=== PATIENT | male | born 1990 ===

== ENCOUNTER 2017-12-27 05:17 | Inpatient (IN) | payer OTHER ==
[~2017-12-27] VITALS: Ht 172.7 cm; Wt 87.5 kg
[2017-12-27] VITALS (12 sets, daily range): BP systolic 104–133; BP diastolic 55–90
[~2017-12-27 05:17] MED LIST: NORCO 10-325 T1 EACH ORAL
[2017-12-27] MEDS ORDERED: LR 1000ml 1,000 ML IVLG SCH (06:16)
--- NOTE | 2017-12-27 06:21 | Anethesia Preoperative Eval ---
Anesthesia Pre-op PMH/ROS General Date of Evaluation: Dec 27, 2017 Time of Evaluation: 07:01 Anesthesiologist: Leo ASA Score: ASA 2 Mallampati Score Class I : Soft palate, uvula, fauces, pillars visible Class II: Soft palate, uvula, fauces visible Class III: Soft palate, base of uvula visible Class IV: Only hard plate visible Mallampati Classification: Class I Surgeon: Deb Diagnosis: Back Pain Surgical Procedure: L4-5,L5-S1 Microdiscectomy and Decompression Anesthesia History: none Family History: no anesthesia problems Allergies: Coded Allergies: No Known Allergies (Unverified , 12/26/17) Medications: see eMAR Past Medical History Pulmonary: Reports: other - Bronchitis Neurologic/Psychiatric: Reports: depression/anxiety Other: obesity - BMI 31 Anesthesia Pre-op Phys. Exam Physician Exam Last Vital Signs Date Time Temp Pulse Resp B/P (MAP) Pulse Ox O2 Delivery O2 Flow Rate FiO2 12/27/17 06:02 Room Air Constitutional: NAD Neurologic: CN 2-12 intact Cardiovascular: RRR Respiratory: CTA Gastrointestinal: S/NT/ND Airway Exam Mallampati Score: Class I MO: full ROM: full Teeth: intact Anesthesia Pre-op A/P Risk Assessment & Plan Assessment: ASA 2 Plan: GA, SED, GlideScope Status Change Before Surgery: No Pre-Antibiotics Dru Grams Ancef IV Given Within 1 Hr of Incision: Yes Time Given: 07:21 Luis F Bailey MD Dec 27, 2017 06:21
[2017-12-27] MEDS ORDERED: fentaNYL 100 mcg/2 mL IV PRN (06:30)
[2017-12-27] MEDS ORDERED: Acetaminophen (Non formulary) 100 ML IV ONE (06:30)
[2017-12-27] MEDS ORDERED: Norco 5mg/325mg tab ORAL PRN (06:30)
[2017-12-27] MEDS ORDERED: LORazepam Inj 2mg/ml 1ml IV PRN (06:30)
[2017-12-27] MEDS ORDERED: HYDROcodone/Acetamin 7.5/325 tab ORAL PRN (06:30)
[2017-12-27] MEDS ORDERED: Meperidine 50mg/ml Inj(FOR RIGORS ONLY) IVP PRN (06:30)
[2017-12-27] MEDS ORDERED: Ketorolac 30mg Inj IV PRN ×2 (06:30)
[2017-12-27] MEDS ORDERED: Hydromorphone 0.5mg/0.5ml inj IVP PRN ×2 (06:30→12:30)
[2017-12-27] MEDS ORDERED: Labetalol 5mg/ml 20ml vial IV PRN (06:30)
[2017-12-27] MEDS ORDERED: oxyCODONE HCL/Acetaminophen 5/325mg ORAL PRN (06:30)
[2017-12-27] MEDS ORDERED: Metoclopramide 10mg/2ml Inj IVP PRN (06:30)
[2017-12-27] MEDS ORDERED: Gelfoam Size TOPIC ONE (06:30)
[2017-12-27] MEDS ORDERED: Midazolam 2mg/2ml Inj IVP PRN (06:30)
[2017-12-27] MEDS ORDERED: Atropine Sulfate 0.4mg/ml inj IVP PRN (06:30)
[2017-12-27] MEDS ORDERED: DiphenhydrAMINE 50mg/ml Inj IVP PRN (06:30)
[2017-12-27] MEDS ORDERED: Thrombin 5000 units TOPIC ONE (06:30)
[2017-12-27] MEDS ORDERED: Lidocaine 1% Plain 30 ml INJ ONE ×3 (06:31→09:01)
[2017-12-27] MEDS ORDERED: Bacitracin 50000 Units Vial ONE (06:31)
[2017-12-27] MEDS ORDERED: Bupivacaine w/Epi 0.5% 30ml Vial INJ ONE (06:31)
[2017-12-27] MEDS ORDERED: Lidocaine 1% MPF 10mg/ml 5ml ONE (06:49)
[2017-12-27] MEDS ORDERED: Sodium Chloride 10ml vial INJ ONE (06:49)
[2017-12-27] MEDS ORDERED: fentaNYL 100 mcg/2 mL IV ONE ×2 (06:50→08:28)
[2017-12-27] MEDS ORDERED: Neostigmine 1mg/ml 10ml Inj ONE (07:00)
[2017-12-27] MEDS ORDERED: Dexamethasone 20mg/5ml IVP ONE (07:00)
[2017-12-27] MEDS ORDERED: Sterile Water Irrig 1000ml IRRIG ONE (07:00)
[2017-12-27] MEDS ORDERED: LR 1000ml ONE (07:00)
[2017-12-27] MEDS ORDERED: ceFAZolin sod 1 GM in NS 55 ML IVPB ONE (07:00)
[2017-12-27] MEDS ORDERED: NS Irrig 1000ml ONE (07:00)
[2017-12-27] MEDS ORDERED: Propofol 1,000mg/ 100ml btl IV ONE (07:00)
--- NOTE | 2017-12-27 07:14 | Pre-Procedure Note/Attestation ---
Pre-Procedure Note/Attestation Complete Prior to Procedure Planned Procedure: not applicable Procedure Narrative: L4-5 L5-S1 microdiscectomy Indications for Procedure Pre-Operative Diagnosis: Trauma HNP foot drop Attestation I attest that I discussed the nature of the procedure; its benefits; risks and complications; and alternatives (and the risks and benefits of such alternatives ), prior to the procedure, with the patient (or the patient's legal telephone sales representative). I attest that, if there was a reasonable possibility of needing a blood transfusion, the patient (or the patient's legal telephone sales representative) was given the [facility] standardized written summary, pursuant to the Rubin Vamsi Blood Safety Act ([place] Health and Safety Code # 1645, as amended). I attest that I re-evaluated the patient just prior to the surgery and that there has been no change in the patient's H&P, except as documented below: CHRISTIANO PRECIADO Dec 27, 2017 07:14
[2017-12-27] MEDS ORDERED: Thrombin 5000 units spray kit TOPIC ONE (09:10)
--- NOTE | 2017-12-27 09:34 | Brief Operative Note ---
Immediate Post Operative Note Operative Note Pre-op Diagnosis: Trauma HNP foot drop Procedure: L4-5, L5-S1 microdiscectomy right local magnification xray Post-op Diagnosis: same as pre-op Findings: consistent w/pre-op dx studies Surgeon: Deb IZQUIERDO Caseworker: Wendy CHRISTENSEN Anesthesiologist: Leo IZQUIERDO Anesthesia: general Specimen: yes Complications: none Condition: stable Fluids: anesthesia Estimated Blood Loss: minimal Drains: none Implant(s) used?: No CHRISTIANO PRECIADO Dec 27, 2017 09:34
[2017-12-27] MEDS ORDERED: Glycopyrrolate 0.2mg/ml 1ml Vial ONE (09:41)
--- NOTE | 2017-12-27 10:03 | Immediate Post-Op Evaluation ---
Immediate Post-Op Evalulation Immediate Post-Op Evalulation Procedure: L4-5,L5-S1 Microdiscectomy and Decompression Date of Evaluation: Dec 27, 2017 Time of Evaluation: 10:28 IV Fluids: 800 LR Blood Products: 0 Estimated Blood Loss: 20 Urinary Output: 0 Blood Pressure Systolic: 128 Blood Pressure Diastolic: 88 Pulse Rate: 76 Respiratory Rate: 16 O2 Sat by Pulse Oximetry: 100 Temperature (Fahrenheit): 97.9 Pain Score (1-10): 2 Nausea: No Vomiting: No Complications 0 Patient Status: awake, reacts, patent, extubated, none Hydration Status: adequate Dru Grams Ancef IV Given Within 1 Hr of Incision: Yes Time Given: 07:21 Luis F Bailey MD Dec 27, 2017 10:03
--- NOTE | 2017-12-27 10:04 | 48 Hour Post Anesthesia Eval ---
Post Anesthesia Evaluation Procedure: L4-5,L5-S1 Microdiscectomy and Decompression Date of Evaluation: Dec 27, 2017 Time of Evaluation: 12:43 Blood Pressure Systolic: 108 0: 62 Pulse Rate: 71 Respiratory Rate: 18 Temperature (Fahrenheit): 98.2 O2 Sat by Pulse Oximetry: 98 Airway: patent Nausea: No Vomiting: No Pain Intensity: 2 Hydration Status: adequate Cardiopulmonary Status: Stable Mental Status/LOC: patient returned to baseline Follow-up Care/Observations: 0 Post-Anesthesia Complications: 0 Follow-up care needed: ready to discharge Luis F Bailey MD Dec 27, 2017 10:04
[2017-12-27] MEDS ORDERED: D5 1/2NS 1,000 ML IV SCH (11:45)
[2017-12-27] MEDS ORDERED: Naloxone 0.4mg/ml Inj IVP PRN (11:45)
[2017-12-27] MEDS ORDERED: HYDROcodone/Acetamin 10/325 tab ORAL PRN (12:30)
--- NOTE | 2017-12-27 12:33 | Diagnostic Imaging Report ---
INDICATION: Pain, intraoperative TECHNIQUE: Intraoperative imaging Fluoroscopy time: 4.6 seconds Total dose: 6 0.56-1 mGym2 Total number of images: 1 COMPARISON: None FINDINGS: Single lateral image demonstrates surgical tool posterior to what is presumably the L5-S1 disc IMPRESSION: Intraoperative imaging, as described
[2017-12-27] MEDS ORDERED: Dronabinol 2.5mg Cap ORAL SCH ×2 (13:38→22:00)
[2017-12-27] MEDS ORDERED: HYDROmorphone 1mg/ml Carpuject SUBQ PRN (13:45)
[2017-12-27] MEDS ORDERED: Chloraseptic Spray 20mL Bottle ORAL PRN (13:45)
[2017-12-27] MEDS ORDERED: ceFAZolin sod 1 GM in D5W 55 ML IV SCH (15:30)
[2017-12-27] MEDS ORDERED: D5 1/2NS 1000ml IV ONE (15:45)
--- NOTE | 2017-12-27 21:15 | Operative Note - Dictated ---
DATE OF OPERATION: 12/27/2017 SURGEON: James Boyd, Ph.D., M.D. CUTTER TENDER: FERMIN Salas. ANESTHESIOLOGIST: Luis F Bailey M.D. ANESTHESIA: General with intubation. ESTIMATED BLOOD LOSS: Minimal. COMPLICATIONS: None. POSTOP CONDITION: Good/stable. SPECIMEN: Disk fragment of L4-L5 and L5-S1 to pathology. ADMITTING/PREOPERATIVE DIAGNOSIS: Posttraumatic lumbar herniated nucleus pulposus with footdrop. POSTOPERATIVE DIAGNOSIS: Posttraumatic lumbar herniated nucleus pulposus with footdrop. OPERATIVE PROCEDURE: 1. High-power magnification and dissection. 2. Intraoperative x-rays interpreted by surgeon. 3. Microdiskectomy, right L4-L5 and L5-S1. 4. Local anesthetic applied by surgeon. DESCRIPTION OF PROCEDURE: The patient was brought to the operating room and in the supine position, general anesthesia with intubation was induced. IV antibiotics and IV Decadron were administered 30 minutes prior to incision time. The patient was carefully turned and positioned in prone position after intubation. Lumbodorsal spine was sterilely prepped. A spinal needle was placed percutaneously into the subcutaneous tissue only with cross-table imaging obtained under sterile conditions demonstrating a correct level for incision placement. Interpreted by surgeon. Needle removed. Back sterilely prepped once again and draped free in usual sterile fashion. A longitudinal midline incision was carried sharply through dermis and epidermis over the involved intervals. Electrocautery dissection was carried through extensive subcutaneous tissue to the level of the lumbodorsal fascia that was incised right of midline only over the inferior lamina of L4, L5, and superior S1. Metallic marker was sterilely placed. Cross-table image obtained under sterile conditions interpreted by surgeon demonstrating the correct level for further dissection. The level of the marker recorded. Marker removed. Retractors placed. Under high-power magnification, a right hemilaminotomy followed with excision of the ligamentum flavum was undertaken with dissection carried lateral to the exiting nerve root and dural tube to the level of the disk space. Subligamentous herniated nucleus pulposus noted. Annular incision followed microdiscectomy not exceeding posterior and anterior dimensions of 11 mm. Dissection was carried also medial and lateral, anterior to the posterior anulus. Disk space irrigated with antibiotic-containing saline. No bleeding from the disk space. No further free fragments. Bipolar electrocauterization was utilized sparingly for epidural bleeding throughout the case. No dural tears or leaks noted at anytime during the procedure. Irrigated. Attention turned to the L4-L5 interval where hemilaminotomy of the inferior L4 lamina right was performed. Care was taken at both the L4 and L5 intervals to identify and protect the integrity of the pars interarticularis. At the L4-L5 interval, ligamentum flavum was excised followed with dissection lateral to the dural tube and exiting nerve root to the level of the subligamentous herniated nucleus pulposus. Bipolar electrocauterization for epidural vessels. Annulotomy followed microdiscectomy with the disk fragments sent to pathology. Dissection not carried anteriorly to the anulus greater than 10 mm. Disk space irrigated. No further fragments identified. Gentle probing about both the L4-L5, and L5-S1 interval between dura and anulus revealed no further impingement. No cerebrospinal fluid leakage noted from the L4-L5 interval after copious irrigation with antibiotic-containing saline. FloSeal placed into the lateral gutters at both intervals. Sequential reapproximation with Vicryl suture material of the lumbodorsal fascia and subcutaneous tissue in multiple layers, dermis and epidermis followed by transverse surgical strips after local anesthetic was applied of 1% lidocaine in bilateral lateral aspects of the incision and subcutaneous interval as local anesthetic. Sterile bandage was applied and maintained in place with tape. The patient was carefully turned from the prone to the supine position on the transport bed where he was awakened, extubated in the operating room, and transported to postop recovery in good and stable condition. James Boyd M.D. DR: Edith JOB#: [id number] CC:
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
== END 2017-12-27 15:46 | disposition home or self-care (01) | DRG 520 ==
LOC: SUR 05:17 → 3E 11:37
PROC: 0SB20ZZ Excision of Lumbar Vertebral Disc, Open Approach (ICD-10-PCS; principal; 2017-12-27 07:00)
PROC: 0SB40ZZ Excision of Lumbosacral Disc, Open Approach (ICD-10-PCS; principal; 2017-12-27 07:00)
DX: M51.16 Intervertebral disc disorders with radiculopathy, lumbar region (principal); M21.371 Foot drop, right foot; V89.2XXS Person injured in unspecified motor-vehicle accident, traffic, sequela; F17.200 Nicotine dependence, unspecified, uncomplicated; G89.18 Other acute postprocedural pain
CPT/HCPCS: 72020; 76001; 87081; J2405; J2710; J2765